=== PATIENT | male | born 1975 | race Caucasian/White ===

== ENCOUNTER 2023-09-20 05:56 | Inpatient (IN) | payer OTHER ==
[2023-09-15 14:13] LABS: Urine Bacteria None Seen /hpf (None Seen)
[2023-09-15 14:17] LABS: Basophils # (auto) 0 10 ^3/uL (0-0.2); Basophils % (auto) 0.6 % (0.0-2.0); Eosinophils # (auto) 0.1 10 ^3/uL (0-0.8); Eosinophils % (auto) 0.9 % (0.0-7.0); Hematocrit 45.3 % (41.0-53.0); Hemoglobin 15.9 g/dL (13.5-17.5); Lymphocytes # (auto) 2.4 10 ^3/uL (0.4-5.4); Lymphocytes % (auto) 27.7 % (10.0-50.0); Mean Corpuscular Hemoglobin 31.5 pg (28.0-32.0); Mean Corpuscular Hgb Conc. 35.1 g/dL (32.0-36.0); Mean Corpuscular Volume 89.5 fL (80.0-100.0); Monocytes # (auto) 0.6 10 ^3/uL (0-1.3); Neutrophils # (auto) 5.5 10 ^3/uL (1.6-8.6); Neutrophils % (auto) 63.8 % (37.0-80.0); Nucleated Red Blood Cells % 0.1 %; Red Blood Cells 5.06 10^6/uL (4.5-5.90); Red Cell Distribution Width 13.2 % (11.8-14.3); White Blood Cell 8.5 10^3/uL (4.4-10.8)
[2023-09-15 14:27] LABS: Urine Blood Negative /uL (Negative); Urine Clarity Clear (Clear); Urine Color Light-Yellow (Yellow); Urine Protein, UAD Negative (Negative); Urine Urobilinogen Normal (Negative); Urine WBC <1 /hpf (0 - 3); Urine pH 6.5 (5.0-9.0)
[2023-09-15 14:44] LABS: INR 1.03 (0.9-1.15); Partial Thromboplastin Time 28.8 SEC (24.5-34.5); Prothrombin Time 10.9 sec (9.3-11.8)
[2023-09-15 15:02] LABS: Alanine Aminotransferase 38 U/L (7-40); Albumin 4.6 g/dL (3.2-4.8); Alkaline Phosphatase 146 U/L (46-116); Anion Gap 4 (5-15); Aspartate Aminotransferase 23 U/L (13-40); BUN/Creatinine Ratio 10.4 (10.0-20.0); Blood Urea Nitrogen 10 mg/dL (9-23); Calcium 9.8 mg/dL (8.7-10.4); Carbon Dioxide 30 mmol/L (20-30); Chloride 103 mmol/L (98-107); Glucose 89 mg/dL (74-106); Potassium 4.1 mmol/L (3.5-5.1); Sodium 137 mmol/L (136-145)
[2023-09-15 15:03] LABS: Bilirubin, Total 0.6 mg/dL (0.2-1.0); Total Protein 7.8 g/dL (5.7-8.2)
[~2023-09-20] VITALS: Ht 182.9 cm; Wt 107.8 kg
[~2023-09-20 05:56] MED LIST: AMLO1TAB22 PO; LISI40TA16 PO
[2023-09-20] MEDS ORDERED: TRANEXAMIC ACID 20 ML ONE (06:16)
[2023-09-20] MEDS ORDERED: LIDOCAINE W/ EPINEPHRINE 1% 20ML VIAL ONE (06:17)
[2023-09-20] MEDS ORDERED: LIDOCAINE 2% JELLY 11ml (GLYDO) ONE (06:17)
[2023-09-20] MEDS ORDERED: SUCCINYLCHOLINE CHLORIDE 20 MG/ML 10ML VIAL IV ONE (06:34)
[2023-09-20] MEDS ORDERED: ROCURONIUM 10MG/ML 10ML VIAL IV ONE (06:34)
[2023-09-20] MEDS ORDERED: PROPOFOL 10 MG/ML 20 ML IV ONE ×2 (06:43→08:57)
[2023-09-20] MEDS ORDERED: KETAMINE 50mg/ML 1ml syringe ONE (06:43)
[2023-09-20] MEDS ORDERED: NEOSTIGMINE 1 MG/ML INJ (10mg/10ML VIAL) ONE (06:43)
[2023-09-20] MEDS ORDERED: fentaNYL CITRATE 100 MCG/2 ML VL ONE (06:43)
[2023-09-20] MEDS ORDERED: ONDANSETRON HCL 4 MG/2 ML VIAL ONE (06:43)
[2023-09-20] MEDS ORDERED: MIDAZOLAM HCL 2MG/2ML 2ml VIAL (1mg/ml) ONE (06:43)
[2023-09-20] MEDS ORDERED: SODIUM CHLORIDE LOCK 50 ML ONE (06:43)
[2023-09-20] MEDS ORDERED: MEPERIDINE HCL (50 MG/ML) 1 ML VIAL ONE (06:43)
[2023-09-20] MEDS ORDERED: DexAMETHasone SOD PHOS 10MG/1ML VIAL INJ ONE (06:43)
[2023-09-20] MEDS ORDERED: LIDOCAINE 1% INJ PF 5ML AMP ONE (06:43)
[2023-09-20] MEDS ORDERED: GLYCOPYRROLATE 0.2 MG/ML 1ML VIAL ONE (06:43)
[2023-09-20] MEDS ORDERED: KETOROLAC TROMETH 30 MG/ML 1ML VIAL IV ONE (07:00)
[2023-09-20] MEDS ORDERED: METOCLOPRAMIDE HCL 5MG/ml INJ 2ml VIAL IV ONE (07:00)
[2023-09-20] MEDS ORDERED: MORPHINE SULFATE INJ 2 MG/ml SYRG IV PRN ×2 (07:00→10:30)
[2023-09-20] MEDS ORDERED: HYDROmorphone HCL 2 MG/ML VL/or syr IV PRN (07:00)
[2023-09-20] MEDS ORDERED: ceFAZolin 2 GM/D5W50ml 50 ML IV ONE (07:10)
[2023-09-20] MEDS: levoFLOXacin 750MG 150 ML IV ONE (07:15)
[2023-09-20 10:18] VITALS: O2SAT 96
[2023-09-20] MEDS ORDERED: ONDANSETRON HCL 4 MG/2 ML VIAL IV PRN (10:30)
[2023-09-20] MEDS ORDERED: ACETAMINOPHEN 325 MG TAB PO PRN (10:30)
[2023-09-20] MEDS ORDERED: NITROGLYCERIN 0.4 MG SL TAB SL PRN (10:30)
[2023-09-20] MEDS: D5W/SOD CHLO 0.9% 1,000 ML IV SCH (10:30)
[2023-09-20] MEDS ORDERED: HYDROcodone-ACET 10/325MG TAB PO PRN (10:30)
[2023-09-20] MEDS ORDERED: HYDROmorphone HCL 2 MG/ML VL/or syr ONE (10:41)
[2023-09-20] MEDS: HYDROmorphone HCL 2 MG/ML VL/or syr IV PRN (10:45)
[2023-09-20 13:00] VITALS: BP 123/68; PULSE 84; RESP 18; TEMP 97.1; O2SAT 91
[2023-09-20 13:25] VITALS: BP 108/63; PULSE 84; RESP 18; TEMP 97.2; O2SAT 92
[2023-09-20] MEDS ORDERED: ceFAZolin 1GM/50ML 50 ML IV SCH (14:00)
[2023-09-20] MEDS: MORPHINE SULFATE INJ 2 MG/ml SYRG IV PRN (14:02)
[2023-09-20] MEDS: ceFAZolin 1GM/50ML 50 ML IV SCH (16:26)
[2023-09-20] MEDS: CYCLOBENZAPRINE HCL 10 MG TAB PO SCH (16:26)
[2023-09-20 17:00] VITALS: BP 128/74; PULSE 89; RESP 20; TEMP 98.9; O2SAT 93
[2023-09-20 20:00] VITALS: PULSE 98
[2023-09-20 21:00] VITALS: BP 135/83; PULSE 96; RESP 16; TEMP 97.6; O2SAT 94
[2023-09-20] MEDS: DOCUSATE SOD 100 MG CAP PO SCH (22:03)
[2023-09-21] VITALS (8 sets, daily range): BP systolic 122–162; BP diastolic 79–90; PULSE 75–120; RESP 14–16; TEMP 97.8–100.2; O2SAT 91–100
[2023-09-21 14:25] LABS: Basophils # (auto) 0 10 ^3/uL (0-0.2); Basophils % (auto) 0.2 % (0.0-2.0); Eosinophils # (auto) 0 10 ^3/uL (0-0.8); Hematocrit 42.3 % (41.0-53.0); Hemoglobin 14.6 g/dL (13.5-17.5); Lymphocytes # (auto) 0.5 10 ^3/uL (0.4-5.4); Mean Corpuscular Hemoglobin 31.1 pg (28.0-32.0); Mean Corpuscular Hgb Conc. 34.5 g/dL (32.0-36.0); Mean Corpuscular Volume 90.1 fL (80.0-100.0); Monocytes # (auto) 0.7 10 ^3/uL (0-1.3); Monocytes % (auto) 8.5 % (0.0-12.0); Neutrophils # (auto) 6.7 10 ^3/uL (1.6-8.6); Neutrophils % (auto) 85.3 % (37.0-80.0); Nucleated Red Blood Cells % 0.3 %; Red Blood Cells 4.69 10^6/uL (4.5-5.90); White Blood Cell 7.9 10^3/uL (4.4-10.8)
[2023-09-21 14:46] LABS: Alanine Aminotransferase 32 U/L (7-40); Alkaline Phosphatase 132 U/L (46-116); Anion Gap 5 (5-15); Aspartate Aminotransferase 32 U/L (13-40); BUN/Creatinine Ratio 5.4 (10.0-20.0); Bilirubin, Total 1.2 mg/dL (0.2-1.0); Blood Urea Nitrogen 5 mg/dL (9-23); Calcium 8.9 mg/dL (8.5-10.1); Carbon Dioxide 26 mmol/L (20-30); Chloride 103 mmol/L (98-107); Glucose 117 mg/dL (74-106); Potassium 3.7 mmol/L (3.5-5.1); Sodium 134 mmol/L (136-145)
[2023-09-22 05:00] VITALS: BP 144/86; PULSE 113; RESP 18; TEMP 99.6; O2SAT 91
[2023-09-22] MEDS ORDERED: CYCL-611 PO (07:47)
[2023-09-22] MEDS ORDERED: HYDR-4798 PO (07:47)
[2023-09-22] MEDS ORDERED: DOCU-265 PO (07:47)
[2023-09-22 08:00] VITALS: PULSE 120
[2023-09-22 08:40] VITALS: BP 132/84; PULSE 119; RESP 20; TEMP 98.5; O2SAT 97
[2023-09-22] MEDS: LISINOPRIL 5 MG TAB PO SCH (09:43)
[2023-09-22 12:26] VITALS: BP 135/91; PULSE 117; RESP 20; TEMP 99.8; O2SAT 92
== END 2023-09-22 12:48 | disposition home or self-care (01) | DRG 520 ==
LOC: SUR 05:56 → OVERFLOW 10:21 → TELE-WESTW 11:33
PROVIDERS: ADMIT Orthopaedic Surgery; ATTEND Orthopaedic Surgery
PROC: 4A11X4G Monitoring of Peripheral Nervous Electrical Activity, Intraoperative, External Approach (ICD-10-PCS; 2023-09-20)
PROC: 0SB40ZZ Excision of Lumbosacral Disc, Open Approach (ICD-10-PCS; principal; 2023-09-20 07:30)
DX: M51.27 Other intervertebral disc displacement, lumbosacral region (principal); I10 Essential (primary) hypertension; R00.0 Tachycardia, unspecified; E66.9 Obesity, unspecified; Z79.899 Other long term (current) drug therapy; Z82.49 Family history of ischemic heart disease and other diseases of the circulatory system; Z68.32 Body mass index [BMI] 32.0-32.9, adult
CPT/HCPCS: 36415; 72100; 76000; 80053; 81001; 85025; 85610; 85730; 86850; 86900; 86901; 97110; 97116; 97163; G0378; J0330; J1100; J1956; J2250; J2405; J2704; J7042